=== PATIENT | female | born 1960 | race Caucasian/White ===

== ENCOUNTER 2022-08-11 17:49 | Emergency (ER) | payer OTHER ==
[2022-08-11 18:20] LABS: BASOPHILS # (AUTO) 0.1 10^3/uL (0.0-0.1); BASOPHILS % (AUTO) 0.9 %; EOSINOPHILS # (AUTO) 0.2 10^3/uL (0.0-0.7); HCT - HEMATOCRIT 43.9 % (37.0-47.0); LYMPHOCYTES # (AUTO) 2.1 10^3/uL (1.5-3.5); LYMPHOCYTES % (AUTO) 27.9 %; MEAN CORPUSCULAR HEMOGLOBIN 28.3 pg (27.0-31.0); MEAN CORPUSCULAR HGB CONC 31.9 g/dL (32.0-36.0); MEAN CORPUSCULAR VOLUME 88.9 fL (81.0-99.0); MEAN PLATELET VOLUME 10.2 fL (7.9-10.8); MONOCYTES # (AUTO) 0.6 10^3/uL (0.0-1.0); MONOCYTES % (AUTO) 8.1 %; NEUTROPHILS # (AUTO) 4.5 10^3/uL (1.5-6.6); PLT - PLATELET COUNT 269 10^3/uL (130-450); RED BLOOD COUNT 4.94 10^6/uL (4.20-5.40); RED CELL DISTRIBUTION WIDTH 12.8 % (12.0-15.0); WHITE BLOOD COUNT 7.4 x10^3/uL (4.8-10.8)
[2022-08-11 18:32] LABS: ALBUMIN 3.9 g/dL (3.2-5.5); ALBUMIN/GLOBULIN RATIO 1.1 (1.0-2.2); BILIRUBIN,TOTAL 0.5 mg/dL (0.2-1.0); CALCIUM 9.4 mg/dL (8.5-10.3); POTASSIUM 3.9 mmol/L (3.5-5.0); TOTAL PROTEIN 7.5 g/dL (6.7-8.2)
--- NOTE | 2022-08-11 18:34 | XRAY Report ---
PROCEDURE: Chest 1 View X-Ray INDICATIONS: Chest pain TECHNIQUE: One view of the chest was acquired. COMPARISON: None. FINDINGS: Surgical changes and devices: None. Lungs and pleura: No pleural effusions or pneumothorax. Lungs are clear. Mediastinum: Mediastinal contours appear normal. Heart size is normal. Bones and chest wall: No suspicious bony lesions. Overlying soft tissues appear unremarkable. IMPRESSION: No acute cardiopulmonary process demonstrated radiographically. Reviewed by: Xavi Gray MD on 08/11/2022 6:[address] [facility] Approved by: Xavi Gray MD on 08/11/2022 6:[address] [facility] Station ID: [id number]
--- NOTE | 2022-08-11 18:39 | ED Physician Documentation ---
PD HPI FOCAL NEURO - Stated complaint Stated Complaint: DIZZY SPELLS, LIGHT HEADED - Chief complaint Chief Complaint: Neuro - History obtained from History obtained from: Patient - Additional information Additional information: Otherwise healthy 62-year-old woman has had 2 weeks of ongoing chest pain that she related to increased activity outdoors. This morning at 2 AM she rolled over in bed look at the clock and felt like the clock was moving [id number] and she developed dizziness. She had a couple more episodes of dizziness today, once with rolling over and once with bending over. She is not dizzy at this time. She denies other focal neurologic complaints. No headaches. Review of Systems Constitutional: denies: Fever, Chills Nose: denies: Rhinorrhea / runny nose Throat: denies: Sore throat Cardiac: denies: Chest pain / pressure, Palpitations Respiratory: denies: Dyspnea, Cough PD PAST MEDICAL HISTORY - Allergies Allergies/Adverse Reactions: Allergies Allergy/AdvReac Type Severity Reaction Status Date / Time Penicillins Allergy Hives Verified 08/11/22 18:02 PD ED PE NORMAL - Vitals Vital signs reviewed: Yes - General General: Alert and oriented X 3, No acute distress - HEENT HEENT: PERRL, EOMI (On initial evaluation she had just a flutter of horizontal nystagmus on leftward gaze), Ears normal, Pharynx benign - Neck Neck: Supple, no meningeal sign, No bony TTP - Cardiac Cardiac: RRR, No murmur - Respiratory Respiratory: No respiratory distress, Clear bilaterally - Abdomen Abdomen: Normal bowel sounds, Soft, Non tender - Back Back: No CVA TTP, No spinal TTP - Derm Derm: Normal color, Warm and dry - Extremities Extremities: No edema, No calf tenderness / cord - Neuro Neuro: Alert and oriented X 3, No motor deficit, No sensory deficit, Normal speech, Other (Normal [id number] and [id number] testing, normal gait) Eye Opening: Spontaneous Motor: Obeys Commands Verbal: Oriented GCS Score: 15 Results - Vitals Vitals: Vital Signs - 24 hr 08/11/22 08/11/22 08/11/22 17:54 18:30 19:31 Temperature 36.5 C Heart Rate 104 H 80 71 Respiratory 14 16 14 Rate Blood Pressure 152/97 H 153/65 H 115/76 O2 Saturation 98 97 96 Oxygen O2 Source Room air - EKG (time done) 1821 Rate: Rate (enter#) (86) Rhythm: NSR Hoffmeister: Normal Intervals: Normal IA QRS: Normal Ischemia: Normal ST segments - Labs Labs: Laboratory Tests 08/11/22 08/11/22 08/11/22 18:09 18:09 18:09 WBC 7.4 RBC 4.94 Hgb 14.0 Hct 43.9 MCV 88.9 MCH 28.3 MCHC 31.9 L RDW 12.8 Plt Count 269 MPV 10.2 Neut # (Auto) 4.5 Lymph # (Auto) 2.1 [place] # (Auto) 0.6 Eos # (Auto) 0.2 Baso # (Auto) 0.1 Absolute Nucleated RBC 0.00 Nucleated RBC % 0.0 Sodium 140 Potassium 3.9 Chloride 103 Carbon Dioxide 28 Anion Gap 9.0 BUN 15 Creatinine 1.0 Estimated GFR (MDRD) 56 L Glucose 85 Calcium 9.4 Total Bilirubin 0.5 AST 26 ALT 41 Alkaline Phosphatase 100 Troponin I High Sens 2.8 Total Protein 7.5 Albumin 3.9 Globulin 3.6 Albumin/Globulin Ratio 1.1 Lipase 40 PD Medical Decision Making - ED course ED course: Sounds like peripheral vertigo. I put her through the Honorio maneuver and she became very symptomatic with the right ear down with significant horizontal nystagmus at that time which faded away quickly. Then she remained in asymptomatic after that. Departure - Departure Disposition: 01 Home, Self Care Clinical Impression: Benign paroxysmal positional vertigo, Chest pain Condition: Good Record reviewed to determine appropriate education?: Yes Instructions: Vertigo Paroxysmal Positional, ED Chest Pain NonCardiac Comments: Your blood work, EKG are normal as is your chest x-ray. As discussed the main symptom you have is that of BPPV, benign positional paroxysmal vertigo. We did an Honorio maneuver tonight which seemed to be very helpful. Return if worse. Discharge Date/Time: 08/11/22 19:34
[2022-08-11 19:34] VITALS: BP 115/76
== END 2022-08-11 19:34 | disposition home or self-care (01) ==
LOC: ED 17:49
DX: H81.10 Benign paroxysmal vertigo, unspecified ear (principal); R07.9 Chest pain, unspecified
CPT/HCPCS: 36415; 80053; 83690; 84484; 85025; 93005; 99283; 99284